=== PATIENT | male | born 1995 | race Caucasian/White ===

== ENCOUNTER 2016-12-14 19:22 | Emergency (ER) | payer BC ==
[~2016-12-14] VITALS: Ht 167.6 cm; Wt 62.3 kg
[~2016-12-14 19:22] MED LIST: LITHIUM 60600 MG/CAP; PROAIR HFA0.09 MG/AC IH; RT ADVAIR 128 DISKUS IH; [UNRECOGNIZED DRUG - OTHER]
[2016-12-14 19:26] VITALS: BP 126/64; TEMP 98.7
[2016-12-14 20:27] VITALS: PULSE 85
== END 2016-12-14 20:28 | disposition home or self-care (01) ==
LOC: COL.ER 19:22
DX: S61.512A Laceration without foreign body of left wrist, initial encounter (principal); X78.1XXA Intentional self-harm by knife, initial encounter; Y92.009 Unspecified place in unspecified non-institutional (private) residence as the place of occurrence of the external cause; Z91.5 Personal history of self-harm; F32.9 Major depressive disorder, single episode, unspecified; F41.9 Anxiety disorder, unspecified

== ENCOUNTER 2017-02-02 00:20 | Emergency (ER) | payer BC ==
[~2017-02-02] VITALS: Ht 167.6 cm; Wt 62.3 kg
[2017-02-02 00:24] VITALS: BP 132/77; PULSE 78; TEMP 98.4
== END 2017-02-02 01:31 | disposition left against medical advice (07) ==
LOC: COL.ER 00:20
DX: S51.812A Laceration without foreign body of left forearm, initial encounter (principal); X78.8XXA Intentional self-harm by other sharp object, initial encounter; F32.9 Major depressive disorder, single episode, unspecified; F41.9 Anxiety disorder, unspecified

== ENCOUNTER 2017-04-18 00:16 | Emergency (ER) | payer BC ==
[~2017-04-18] VITALS: Ht 167.6 cm; Wt 64.5 kg
[2017-04-18 00:19] VITALS: BP 129/75; TEMP 98.4
[2017-04-18 01:12] VITALS: PULSE 62
== END 2017-04-18 01:13 | disposition home or self-care (01) ==
LOC: COL.ER 00:16
DX: S61.412A Laceration without foreign body of left hand, initial encounter (principal); J45.909 Unspecified asthma, uncomplicated; F32.9 Major depressive disorder, single episode, unspecified; F41.9 Anxiety disorder, unspecified; F12.99 Cannabis use, unspecified with unspecified cannabis-induced disorder; W26.8XXA Contact with other sharp object(s), not elsewhere classified, initial encounter; Y92.009 Unspecified place in unspecified non-institutional (private) residence as the place of occurrence of the external cause

== ENCOUNTER 2017-05-12 23:53 | Emergency (ER) | payer BC ==
[~2017-05-12] VITALS: Ht 170.2 cm; Wt 66.8 kg
[2017-05-13] VITALS: TEMP 98.3
[2017-05-13 00:29] VITALS: BP 134/69; PULSE 74
== END 2017-05-13 00:29 | disposition home or self-care (01) ==
LOC: COL.ER 23:53
DX: S61.512A Laceration without foreign body of left wrist, initial encounter (principal); W26.0XXA Contact with knife, initial encounter; Y92.89 Other specified places as the place of occurrence of the external cause

== ENCOUNTER 2017-06-24 00:28 | Emergency (ER) | payer BC ==
[~2017-06-24] VITALS: Ht 167.6 cm; Wt 64.1 kg
[2017-06-24 00:30] VITALS: TEMP 98.1
[2017-06-24 00:59] LABS: BASO % 0.4 % (0.0-2.0); EOS # 0.2 (0.0-0.7); EOS % 2.7 % (0-4.0); GRAN % 60.7 % (42.2-75.2); HEMATOCRIT 48.6 % (42.0-52.0); HEMOGLOBIN 17.1 g/dl (13.5-18.0); LYMPH # 2.2 (1.2-3.4); MEAN CELL VOLUME 84 fl (80.0-100.0); MEAN CORPUSCULAR HEMOGLOBIN 30 pg (27.0-31.0); MEAN CORPUSCULAR HGB CONC 35 g/dl (33.0-37.0); MEAN PLATELET VOLUME 10.6 fl (7.4-10.4); MONO # 0.8 (0.1-0.6); MONO % 9.1 % (1.7-9.3); PLATELET COUNT 231 K/mm3 (130-400); RED BLOOD COUNT 5.76 M/mm3 (4.20-5.60); REDCELL DISTRIBUTION WIDTH-CV 12.5 % (11.5-14.5); WHITE BLOOD COUNT 8.3 K/mm3 (4.8-10.8)
[2017-06-24 01:09] LABS: ADJUSTED CALCIUM 8.8 mg/dL (8.4-10.2); ALANINE AMINOTRANSFERASE 26 U/L (21-72); ALBUMIN 5.1 gm/dL (3.5-5.0); ALKALINE PHOSPHATASE 61 U/L (50-136); ANION GAP 14 mmol/L (7-16); BILIRUBIN,TOTAL 4.6 mg/dL (0.0-1.0); BLOOD UREA NITROGEN 14 mg/dL (9-20); CALCIUM 9.7 mg/dL (8.4-10.2); CARBON DIOXIDE 26 mmol/L (22-30); CHLORIDE 101 mmol/L (98-107); CREATININE, serum 1.03 mg/dL (0.66-1.25); GLUCOSE 95 mg/dL (74-106); MAGNESIUM 1.9 mg/dL (1.6-2.3); PHOSPHOROUS 3.6 mg/dL (2.5-4.5); POTASSIUM 3.9 mmol/L (3.4-5.0); SODIUM 140 mmol/L (137-145); TOTAL PROTEIN 7.9 gm/dL (6.4-8.2)
[2017-06-24 01:10] LABS: ACETAMINOPHEN < 10 ug/mL (10-30); SALICYLATE < 1.0 mg/dL
[2017-06-24 02:04] LABS: AMPHETAMINE URINE NEGATIVE; BARBITURATES URINE NEGATIVE; BENZODIAZEPINES URINE NEGATIVE; BUPRENORPHINE URINE NEGATIVE; METHADONE URINE NEGATIVE; OPIATES URINE NEGATIVE; OXYCODONE URINE NEGATIVE; PHENCYCLIDINE URINE NEGATIVE; PROPOXYPHENE URINE NEGATIVE; THC CANNABINOIDS URINE NEGATIVE
[2017-06-24 03:50] VITALS: BP 120/70; PULSE 70
== END 2017-06-24 03:52 | disposition home or self-care (01) ==
LOC: COL.ER 00:28
PROVIDERS: Emergency Medicine
DX: S61.512A Laceration without foreign body of left wrist, initial encounter (principal); F31.9 Bipolar disorder, unspecified; F41.9 Anxiety disorder, unspecified; F12.90 Cannabis use, unspecified, uncomplicated; Z87.891 Personal history of nicotine dependence; Z91.5 Personal history of self-harm; X78.9XXA Intentional self-harm by unspecified sharp object, initial encounter

== ENCOUNTER → 2017-08-10 | Outpatient (CLI) | payer BC | LOC: BHSO 09:12 | DX: F31.73 Bipolar disorder, in partial remission, most recent episode manic (principal) ==

== ENCOUNTER → 2017-09-16 | Outpatient (CLI) | payer BC | LOC: BHSO 09:28 | DX: F33.1 Major depressive disorder, recurrent, moderate (principal) ==

== ENCOUNTER → 2017-11-02 | Outpatient (CLI) | payer BC | LOC: BHSO 15:43 | DX: F31.73 Bipolar disorder, in partial remission, most recent episode manic (principal) ==

== ENCOUNTER → 2017-12-22 | Outpatient (CLI) | payer BC | LOC: BHSO 14:49 | DX: F31.73 Bipolar disorder, in partial remission, most recent episode manic (principal) | CPT/HCPCS: G0463 ==

== ENCOUNTER 2018-01-22 15:32 | Emergency (ER) | payer BC ==
[~2018-01-22] VITALS: Ht 167.6 cm; Wt 63.2 kg
[2018-01-22 15:34] VITALS: BP 120/76; PULSE 92; TEMP 98.1
[2018-01-22] MEDS ORDERED: DEPAKOTE 250MG250 MG PO (15:36)
[2018-01-22] MEDS ORDERED: PROAIR HFA0.09 MG/AC IH (15:37)
[2018-01-22] MEDS ORDERED: RISPERDAL 1M1 MG/TAB PO (15:37)
[2018-01-22] MEDS ORDERED: DEPAKOTE500 MG PO (15:37)
== END 2018-01-22 16:47 | disposition home or self-care (01) ==
LOC: COL.ER 15:32
DX: S61.412A Laceration without foreign body of left hand, initial encounter (principal); F41.9 Anxiety disorder, unspecified; F32.9 Major depressive disorder, single episode, unspecified; F12.90 Cannabis use, unspecified, uncomplicated; Z23 Encounter for immunization; W26.8XXA Contact with other sharp object(s), not elsewhere classified, initial encounter

== ENCOUNTER 2018-03-10 11:25 | Emergency (ER) | payer BC ==
[~2018-03-10] VITALS: Ht 152.4 cm; Wt 60.5 kg
[~2018-03-10 11:25] MED LIST changes: +DEPAKOTE 250MG250 MG PO; +DEPAKOTE500 MG PO; +RISPERDAL 1M1 MG/TAB PO
[2018-03-10 11:26] VITALS: BP 136/92; TEMP 98.5
[2018-03-10] MEDS ORDERED: INVEGA6 MG PO (11:55)
[2018-03-10] MEDS ORDERED: AFRIN 15 ML15 ML NS (12:59)
[2018-03-10] MEDS ORDERED: AMOXICILLIN 8751 TAB PO (12:59)
[2018-03-10 13:09] VITALS: PULSE 92
== END 2018-03-10 13:09 | disposition home or self-care (01) ==
LOC: COL.ER 11:25
DX: R51 Headache (principal); J32.9 Chronic sinusitis, unspecified
CPT/HCPCS: J1885

== ENCOUNTER → 2018-06-30 | Outpatient (CLI) | payer BC ==
[~2018-06-30] MED LIST changes: +AFRIN 15 ML15 ML NS; +AMOXICILLIN 8751 TAB PO; +INVEGA6 MG PO
== END ==
LOC: BHSO 08:52
DX: F63.81 Intermittent explosive disorder (principal)

== ENCOUNTER → 2018-07-14 | Outpatient (CLI) | payer BC | LOC: BHSO 08:56 | DX: F63.81 Intermittent explosive disorder (principal) ==

== ENCOUNTER → 2018-07-21 | Outpatient (CLI) | payer BC | LOC: BHSO 08:56 | DX: F63.81 Intermittent explosive disorder (principal) ==

== ENCOUNTER → 2018-07-28 | Outpatient (CLI) | payer BC | LOC: BHSO 08:47 | DX: F63.81 Intermittent explosive disorder (principal) ==

== ENCOUNTER → 2018-08-04 | Outpatient (CLI) | payer BC | LOC: BHSO 08:49 | DX: F63.81 Intermittent explosive disorder (principal) ==

== ENCOUNTER → 2018-08-25 | Outpatient (CLI) | payer BC | LOC: BHSO 08:45 | DX: F63.81 Intermittent explosive disorder (principal) ==

== ENCOUNTER → 2018-09-13 | Outpatient (CLI) | payer BC | LOC: BHSO 08:58 | DX: F63.81 Intermittent explosive disorder (principal) ==

== ENCOUNTER 2018-09-15 19:33 | Emergency (ER) | payer BC ==
[~2018-09-15] VITALS: Ht 165.1 cm; Wt 59.1 kg
[2018-09-15 19:39] VITALS: BP 120/75; PULSE 85; TEMP 98.1
== END 2018-09-15 20:16 | disposition left against medical advice (07) ==
LOC: COL.ER 19:33
DX: S51.811D Laceration without foreign body of right forearm, subsequent encounter (principal); X58.XXXD Exposure to other specified factors, subsequent encounter

== ENCOUNTER → 2018-09-27 | Outpatient (CLI) | payer BC | LOC: BHSO 08:44 | DX: F63.81 Intermittent explosive disorder (principal) ==

== ENCOUNTER → 2018-11-25 | Outpatient (CLI) | payer BC | LOC: BHSO 08:50 | DX: F63.81 Intermittent explosive disorder (principal) ==

== ENCOUNTER 2019-03-24 06:14 | Day surgery (SDC) | payer BC ==
[2019-03-24] VITALS (7 sets, daily range): BP systolic 99–123; BP diastolic 46–88; PULSE 57–88; TEMP 97.9–98
[~2019-03-24] VITALS: Ht 165.1 cm; Wt 57.8 kg
--- NOTE | 2019-03-24 08:25 | NUR ---
PATIENT ARRIVES TO [facility] VIA CART FROM [place]. VS STARTED. DENIES NAUSEA AND PAIN. RESPIRATIONS EVEN AND UNLABORED. BOWEL SOUNDS PRESENT. HEART SOUNDS NSR. FATHER IS AT BEDSIDE. CALL LIGHT IN REACH. WILL CONTINUE TO MONITOR.
--- NOTE | 2019-03-24 08:55 | NUR ---
PATIENT VS REMAIN STABLE. PHYSICIAN IS AT BEDSIDE. PATIENT ATE CRACKERS AND DRANK SODA. DENIES NAUSEA. DENIES PAIN. CALL LIGHT WITHIN REACH. WILL CONTINUE TO MONITOR.
--- NOTE | 2019-03-24 09:10 | NUR ---
PATIENT REMAINS STABLE. WILL PREPARE FOR DISCHARGE. CALL LIGHT WITHIN REACH.
--- NOTE | 2019-03-24 09:27 | NUR ---
PATIENT AND FATHER GIVEN DISCHARGE INSTRUCTIONS, BOTH VERBALIZED UNDERSTANDING. VS HAVE REMAINED STABLE. PATIENT TAKEN TO PERSONAL VEHICLE VIA WHEELCHAIR AND DISCHARGED TO HOME UNDER THE CARE OF HIS FATHER.
== END 2019-03-24 09:27 | disposition home or self-care (01) ==
LOC: SDCO 06:14
DX: K21.0 Gastro-esophageal reflux disease with esophagitis (principal); K92.0 Hematemesis; J45.909 Unspecified asthma, uncomplicated; K92.1 Melena; Z79.82 Long term (current) use of aspirin; Z87.891 Personal history of nicotine dependence
CPT/HCPCS: J2250; J3010; J7030

== ENCOUNTER 2019-08-12 21:08 | Emergency (ER) | payer BC ==
[~2019-08-12] VITALS: Ht 167.6 cm; Wt 60.0 kg
[2019-08-12 21:19] VITALS: TEMP 98.4
[2019-08-12 22:00] VITALS: BP 132/85; PULSE 56
== END 2019-08-12 22:05 | disposition home or self-care (01) ==
LOC: COL.ER 21:08
DX: S61.412A Laceration without foreign body of left hand, initial encounter (principal); Z87.891 Personal history of nicotine dependence; W25.XXXA Contact with sharp glass, initial encounter; Y92.009 Unspecified place in unspecified non-institutional (private) residence as the place of occurrence of the external cause

== ENCOUNTER 2019-10-29 16:55 | Emergency (ER) | payer BC ==
[~2019-10-29] VITALS: Ht 167.6 cm; Wt 58.9 kg
[2019-10-29 17:18] VITALS: BP 113/68; TEMP 99
[2019-10-29 18:26] LABS: STREP SCREEN NEGATIVE
[2019-10-29] MEDS ORDERED: PREDNISONE20 MG PO (19:41)
[2019-10-29 19:55] VITALS: PULSE 90
== END 2019-10-29 19:55 | disposition home or self-care (01) ==
LOC: COL.ER 16:55
PROVIDERS: Nurse Practitioner
DX: J45.909 Unspecified asthma, uncomplicated (principal); J20.9 Acute bronchitis, unspecified; J98.2 Interstitial emphysema; F32.9 Major depressive disorder, single episode, unspecified; F41.9 Anxiety disorder, unspecified
CPT/HCPCS: J7512

== ENCOUNTER → 2019-10-30 | Outpatient (CLI) | payer BC ==
[~2019-10-30] MED LIST changes: +PREDNISONE20 MG PO
== END ==
LOC: COL.RAD 09:03
DX: J98.2 Interstitial emphysema (principal); J40 Bronchitis, not specified as acute or chronic

== ENCOUNTER → 2019-11-02 | Outpatient (CLI) | payer BC | LOC: COL.RAD 09:19 | DX: J98.2 Interstitial emphysema (principal) ==

== ENCOUNTER → 2020-09-18 | Outpatient (CLI) | payer BC ==
[~2020-09-18] MED LIST changes: +MEDROL 4MG DOSPA4 MG PO
== END ==
LOC: ZCOL.LAB 20:56
DX: R05 Cough (principal); Z20.828 Contact with and (suspected) exposure to other viral communicable diseases

== ENCOUNTER 2021-06-06 08:03 | Emergency (ER) | payer BC ==
[~2021-06-06] VITALS: Ht 165.1 cm; Wt 72.7 kg
[2021-06-06 10:32] VITALS: BP 122/68; PULSE 79; TEMP 97.3
== END 2021-06-06 10:42 | disposition home or self-care (01) ==
LOC: COL.ER 08:03
DX: S61.412A Laceration without foreign body of left hand, initial encounter (principal); Z23 Encounter for immunization; W26.8XXA Contact with other sharp object(s), not elsewhere classified, initial encounter; Y99.0 Civilian activity done for income or pay

== ENCOUNTER 2021-08-13 09:46 | Emergency (ER) | payer SELFPAY ==
[~2021-08-13] VITALS: Ht 167.6 cm; Wt 70.5 kg
[2021-08-13 10:02] VITALS: BP 132/80; TEMP 100.2
[2021-08-13 11:00] VITALS: PULSE 80
== END 2021-08-13 11:00 | disposition home or self-care (01) ==
LOC: COL.ER 09:46
DX: U07.1 COVID-19 (principal); J45.909 Unspecified asthma, uncomplicated

== ENCOUNTER 2021-08-15 22:20 | Emergency (ER) | payer SELFPAY ==
[~2021-08-15] VITALS: Ht 167.6 cm; Wt 72.7 kg
[2021-08-15 22:54] VITALS: TEMP 98.5
[2021-08-15] MEDS ORDERED: ALBUTEROL SULFAT3 M3 IH (23:02)
[2021-08-16] MEDS ORDERED: PREDNISONE20 MG PO (00:34)
[2021-08-16 00:46] VITALS: BP 111/68; PULSE 94
== END 2021-08-16 00:46 | disposition home or self-care (01) ==
LOC: COL.ER 22:20
DX: U07.1 COVID-19 (principal); J45.901 Unspecified asthma with (acute) exacerbation; Z79.899 Other long term (current) drug therapy
CPT/HCPCS: J2405; J7030; J7512

== ENCOUNTER 2022-03-20 13:11 | Emergency (ER) | payer SELFPAY ==
[~2022-03-20] VITALS: Ht 167.6 cm; Wt 68.2 kg
[~2022-03-20 13:11] MED LIST changes: +ALBUTEROL SULFAT3 M3 IH
[2022-03-20 14:50] LABS: COLLECTION METHOD CLEAN CATCH
[2022-03-20 14:57] LABS: BASO % 0.2 % (0.0-2.0); EOS # 0.1 K/mm3 (0.0-0.7); EOS % 1.7 % (0.0-4.0); GRAN # 4.6 K/mm3 (1.4-6.5); GRAN % 76.8 % (42.2-75.2); HEMATOCRIT 47.2 % (42.0-52.0); HEMOGLOBIN 16.5 g/dl (13.5-18.0); LYMPH # 0.5 K/mm3 (1.2-3.4); LYMPH % 7.9 % (20.0-51.0); MEAN CELL VOLUME 84 fl (80.0-100.0); MEAN CORPUSCULAR HEMOGLOBIN 30 pg (27-31); MEAN CORPUSCULAR HGB CONC 35 g/dl (33.0-37.0); MEAN PLATELET VOLUME 10.4 fl (7.4-10.4); MONO # 0.8 K/mm3 (0.1-0.6); MONO % 13.4 % (1.7-9.3); PLATELET COUNT 172 K/mm3 (130-400); REDCELL DISTRIBUTION WIDTH-CV 12.6 % (11.5-14.5)
[2022-03-20 15:07] LABS: MUCOUS Present (NOT PRESENT); PH 6 (5-8); SQUAMOUS EPITHELIAL None Seen /hpf (0-10); URINE APPEARANCE Clear (CLEAR/HAZY); URINE BACTERIA None Seen /hpf (NONE SEEN); URINE BILIRUBIN Negative (NEGATIVE); URINE BLOOD Negative (NEGATIVE); URINE COLOR Yellow (YELLOW); URINE GLUCOSE Negative (NEGATIVE); URINE KETONE Trace (NEGATIVE); URINE LEUKOCYTE ESTERASE Negative (NEGATIVE); URINE NITRATE Negative (NEGATIVE); URINE PROTEIN(semi-quant) Negative (NEGATIVE); URINE RBC 0-2 /hpf (0-2); URINE UROBILINOGEN Negative (NEGATIVE)
[2022-03-20 15:13] LABS: ALBUMIN 4.9 gm/dL (3.5-5.0); BILIRUBIN,TOTAL 1.5 mg/dL (0.2-1.2); C-REACTIVE PROTEIN 3.87 mg/dL (0.00-0.50); CALCIUM 9.2 mg/dL (8.4-10.2); CREATININE, serum 1.13 mg/dL (0.72-1.25); POTASSIUM 3.6 mmol/L (3.5-4.5); TOTAL PROTEIN 7.8 gm/dL (6.2-8.1)
[2022-03-20 16:05] VITALS: BP 106/55; PULSE 107; TEMP 100.3
== END 2022-03-20 16:05 | disposition home or self-care (01) ==
LOC: COL.ER 13:11
PROVIDERS: Family Medicine
DX: J10.1 Influenza due to other identified influenza virus with other respiratory manifestations (principal); E86.0 Dehydration; Z20.822 Contact with and (suspected) exposure to COVID-19; Z28.310 Unvaccinated for COVID-19
CPT/HCPCS: J0780; J1885; J7120

== ENCOUNTER 2023-08-26 00:04 | Emergency (ER) | payer SELFPAY ==
[~2023-08-26] VITALS: Ht 167.6 cm; Wt 69.1 kg
[~2023-08-26 00:04] MED LIST changes: +PEN-VEE K500 MG PO; +ULTRAM 50MG TAB50 MG PO
[2023-08-26 00:10] VITALS: TEMP 98.1
[2023-08-26 00:50] VITALS: BP 121/81; PULSE 76
== END 2023-08-26 00:50 | disposition home or self-care (01) ==
LOC: COL.ER 00:04
DX: S63.501A Unspecified sprain of right wrist, initial encounter (principal); S60.221A Contusion of right hand, initial encounter; Z28.310 Unvaccinated for COVID-19; W22.01XA Walked into wall, initial encounter

== ENCOUNTER 2023-11-13 10:12 | Emergency (ER) | payer SELFPAY ==
[~2023-11-13] VITALS: Ht 167.6 cm; Wt 70.5 kg
[2023-11-13 10:17] VITALS: BP 127/80
[2023-11-13 11:30] VITALS: PULSE 71; TEMP 98.1
== END 2023-11-13 13:41 | disposition home or self-care (01) ==
LOC: COL.ER 10:12
DX: S51.812A Laceration without foreign body of left forearm, initial encounter (principal); W22.8XXA Striking against or struck by other objects, initial encounter